=== PATIENT | female | born 1960 | race Caucasian/White ===

== ENCOUNTER 2019-01-06 17:06 | Emergency (ER) | payer MEDICAID ==
[~2019-01-06] VITALS: Ht 157.5 cm; Wt 90.7 kg
[~2019-01-06 17:06] MED LIST: ACET325T53 PO; AMOX500C2 PO; Benzocaine/Menth/Cetylpyrd Cl MM; LACT1CAP57 PO; LISI1TAB13 PO; PRED20TA PO; TERBINAFINE TP; VALA500T PO
[2019-01-06] MEDS ORDERED: ACETAMINOPHEN ES 500 MG TABLET ONE (17:26)
[2019-01-06] MEDS ORDERED: PENICILLIN G BENZATHINE 2.4 MMU/4 ML DISP.SYRIN IM ONE ×2 (17:27→17:30)
[2019-01-06] MEDS ORDERED: ACETAMINOPHEN ES 500 MG TABLET PO ONE (17:30)
--- NOTE | 2019-01-06 17:34 | NUR ---
Patient discharged to home in stable conditon. Written and verbal after care instructions given. Patient verbalizes understanding of instructions. Stressed follow up with pmd.
== END 2019-01-06 17:36 | disposition home or self-care (01) ==
LOC: ER 17:06
DX: J20.9 Acute bronchitis, unspecified (principal); R11.10 Vomiting, unspecified; I10 Essential (primary) hypertension; Z79.2 Long term (current) use of antibiotics; Z79.899 Other long term (current) drug therapy
CPT/HCPCS: A4663; A9150

== ENCOUNTER 2019-01-09 13:55 | Emergency (ER) | payer MEDICAID ==
[~2019-01-09] VITALS: Ht 157.5 cm; Wt 90.7 kg
--- NOTE | 2019-01-09 15:02 | NUR ---
PT WAS EVALUATED BY DR BHATTI. PT WAS D/C'd TO [facility]. D/C INSTRUCTIONS GIVEN TO THE PT. D/C INSTRUCTIONS GIVEN TO THE PT.
[2019-01-09 15:04] VITALS: BP 131/71
== END 2019-01-09 15:06 | disposition home or self-care (01) ==
LOC: ER 13:55
DX: J18.9 Pneumonia, unspecified organism (principal); I10 Essential (primary) hypertension; Z79.899 Other long term (current) drug therapy
CPT/HCPCS: 71045; A4663

== ENCOUNTER 2019-07-06 19:20 | Emergency (ER) | payer MEDICAID ==
[~2019-07-06] VITALS: Ht 160 cm; Wt 90.7 kg
[~2019-07-06 19:20] MED LIST changes: -LISI1TAB13 PO; +LISI1TAB29 PO
[2019-07-06] MEDS ORDERED: ONDANSETRON ODT 4 MG TAB.RAPDIS ONE (20:54)
[2019-07-06] MEDS ORDERED: ONDANSETRON ODT 4 MG TAB.RAPDIS SL ONE (21:00)
[2019-07-06] MEDS ORDERED: MECLIZINE HCL 25 MG TABLET PO ONE (21:00)
[2019-07-06] MEDS ORDERED: LORAZEPAM 0.5 MG TABLET PO ONE (21:00)
--- NOTE | 2019-07-06 21:10 | NUR ---
PT ABLE TO AMBULATE TOWARDS BATHROOM
[2019-07-06] MEDS ORDERED: MECLIZINE HCL 25 MG TABLET ONE (21:17)
--- NOTE | 2019-07-06 21:23 | NUR ---
PT STATES SHE WILL BE DRIVING HOME AND HAS CONCERNS ABOUT ATIVAN SIDE EFFECTS OF DROWSINESS IGNACIO ALFONSO
--- NOTE | 2019-07-06 22:00 | NUR ---
Patient discharged to home in stable conditon. Written and verbal after care instructions given. Patient verbalizes understanding of instructions. ambulatory w/ stable gait all belongings w/ pt
--- NOTE | 2019-07-06 22:00 | NUR ---
PT ABLE TO TOLERATE PO CHALLENGE 60ml OF APPLE JUICE
[2019-07-06 22:36] VITALS: BP 142/76
== END 2019-07-06 22:10 | disposition home or self-care (01) ==
LOC: ER 19:22
DX: R42 Dizziness and giddiness (principal); R11.2 Nausea with vomiting, unspecified; H91.90 Unspecified hearing loss, unspecified ear; I10 Essential (primary) hypertension; Z79.2 Long term (current) use of antibiotics; Z79.899 Other long term (current) drug therapy
CPT/HCPCS: A4663; J8597; Q0162